=== PATIENT | female | born 1945 | race Two or more races ===

== ENCOUNTER 2020-07-14 10:46 | Day surgery (SDC) | payer OTHER ==
[~2020-07-14 10:46] MED LIST: ATIVAN2 M1; [UNRECOGNIZED DRUG - OTHER]; [UNRECOGNIZED DRUG - OTHER]
== END 2020-07-14 15:15 | disposition home or self-care (01) ==
LOC: AMB-ENDOS 10:46
PROVIDERS: ATTEND Surgery
DX: K62.89 Other specified diseases of anus and rectum (principal); K64.8 Other hemorrhoids

== ENCOUNTER 2020-07-16 10:35 | Day surgery (SDC) | payer OTHER ==
[2020-07-16] MEDS ORDERED: RECTICARE30 GM TOP ×2 (13:31)
[2020-07-16] MEDS ORDERED: PERCOCET 5-3251 EACH PO ×2 (13:31)
== END 2020-07-16 20:00 | disposition home or self-care (01) ==
LOC: CIR.AMB 10:35
PROVIDERS: ATTEND Surgery
DX: K64.8 Other hemorrhoids (principal); Z20.828 Contact with and (suspected) exposure to other viral communicable diseases